=== PATIENT | female | born 1985 | race Caucasian/White ===

== ENCOUNTER 2016-08-07 11:35 | Inpatient (IN) | payer OTHER ==
[2016-08-07] MEDS ORDERED: Ampicillin 2 GM in Sodium Chloride 0.9% 100 ML IV ONE (13:19)
[2016-08-07] MEDS ORDERED: Sodium Chloride 0.9% 10 ML Syringe FLUSH PRN (13:21)
[2016-08-07] MEDS ORDERED: Sodium Chloride 0.9% 250 ML IV SCH (14:15)
[2016-08-07] MEDS: Ampicillin 1 GM in Sodium Chloride 0.9% 50 ML IV SCH (17:28)
[2016-08-07] MEDS ORDERED: Lidocaine 1% 20 ML MDV INJECT ONE (21:05)
[2016-08-07] MEDS ORDERED: Oxytocin 10 Units/1 ML SDV IM ONE (21:17)
[2016-08-07] MEDS: Ibuprofen 600 MG Tab PO PRN (21:51)
[2016-08-08] MEDS: Ampicillin 1 GM in Sodium Chloride 0.9% 50 ML IV SCH (05:42)
[2016-08-08] MEDS: Ibuprofen 600 MG Tab PO PRN ×2 (08:01→15:07)
[2016-08-09] MEDS: Ibuprofen 600 MG Tab PO PRN (02:53)
--- NOTE | 2016-08-09 07:45 | DEL ---
DATE OF DELIVERY: 08/07/2016 LABOR AND DELIVERY NOTE: Evelia Strong is a 31-year-old, 4, para 3-0-0-3, , female, resident of [facility], who was admitted to [facility] shortly after the noon hour. She had spontaneous rupture of membranes. Clear fluid. No complicating issues. Minimal contractions at the onset. She was up, ambulatory, and doing well. Requested for visit with ruptured membranes early. Group B rectovaginal culture was negative. In light of spontaneous rupture of membranes without presence of onset of labor, antibiotic prophylaxis appropriately indicated. Started on ampicillin per protocol 2 g IV, 1 g q.4 hours through duration of labor. Labor was predictable, but well tolerated. Dilatation was about 1 cm every 2 hours. She ambulated, was up and in the tub, did well. Monitoring pattern was satisfactory. She got to 10 cm. Discomfort became increasingly problematic, and labor was a bit more reluctant. She went to an anterior rim. With one good maternal effort, anterior rim was pushed over the baby's head. Over the course of about 15 minutes of second stage of labor, descent was appropriate in DEONDRE presentation. When at the perineum, was infiltrated with lidocaine, a midline episiotomy was performed, and the child was delivered in DEONDRE presentation. Both nares and oropharynx were suctioned. Nuchal cord was reduced, delivered without complication. The child was resuctioned, warmed, placed on mom's tummy. Let the cord be uncut, the child was well stimulated and comfortable for about 2 minutes, in absence of pulsation of the cord. Cord was doubly clamped and dad cut the cord in attendance. There was spontaneous placental separation, three cord vessels intact. Uterine tone was maintained by massage and intramuscular Pitocin 10 units. Perineum was inspected and free of extension. It was re-infiltrated with lidocaine and repaired in complex fashion with 2-0 chromic suture. Surgical results were excellent. Blood loss negligible, 100 mL. ASSESSMENT: 1. Term IURP. 2. Antibiotic prophylaxis, spontaneous rupture of membranes without labor. 3. A 7 pounds 4 ounce male , scores 9 and 9. 4. Midline episiotomy without extension, repaired. 5. Nursing, nutrition. PLAN: Routine course. No complicating issues, expected all should do well. /[id number] DEXTER/CONOR
--- NOTE | 2016-08-09 07:50 | PN ---
DATE SEEN: 08/08/2016 SUBJECTIVE: Evelia Strong is a 31-year-old 4, para 4 female, one day , up, ambulating, and doing well. Diarrhea, which was problematic during her labor, seems to have resolved. Minimal perineal discomfort. Minimal rectal/anal discomfort. Flow is minimal. OBJECTIVE: On exam, uterus is U-3, tone satisfactory, perineum intact. ASSESSMENT: day #1, no complicating issues. PLAN: Hemoglobin 12.7, informed. Plan discharge tomorrow. /[id number] /CONOR
[2016-08-09 10:44] VITALS: BP 105/61
--- NOTE | 2016-08-09 22:50 | DISCH ---
DISCHARGE DATE: 08/09/2016 HOSPITAL COURSE: Evelia Strong is a 31-year-old 4, para 4, female of 2 days . Up, ambulating, and doing well. Lochia and flow are moderating. Minimal perineal discomfort. Voiding without difficulty. Stools have subsided. Nursing is going comfortably. On exam; vital signs are stable. 36.6, 69, 100/66, 18, and O2 saturation 97%. Exam; U-three tone satisfactory, perineum intact. ASSESSMENT: day 2. PLAN: Discharge home with lengthy instructions, vitamin, ibuprofen, and Tylenol per protocol for pain, limit lifting activity, nurse on demand, intimacy as comfortable, 6 week followup. /[id number] DEXTER/CONOR
== END 2016-08-09 12:04 | disposition home or self-care (01) | DRG 775 ==
LOC: FB.OB 12:41
PROVIDERS: ADMIT Family Medicine; ATTEND Family Medicine
PROC: 10E0XZZ Delivery of Products of Conception, External Approach (ICD-10-PCS; principal; 2016-08-08)
PROC: 0W8NXZZ Division of Female Perineum, External Approach (ICD-10-PCS; 2016-08-08)
DX: O69.81X0 Labor and delivery complicated by cord around neck, without compression, not applicable or unspecified (principal); Z3A.00 Weeks of gestation of pregnancy not specified; Z37.0 Single live birth
CPT/HCPCS: 36415; 85014; 85018; A4217; A9270-GY; J0290; J2590; J7030; J7050

== ENCOUNTER → 2019-04-17 | Outpatient (CLI) | payer OTHER ==
--- NOTE | 2019-04-20 10:46 | US ---
INDICATION: 20 week gestation. OB ULTRASOUND, SECOND OR THIRD TRIMESTER: Multiple ultrasonic images were obtained 04/17/19 - no comparisons. A single intrauterine gestation is noted with change in position during the examination, mostly longitudinal breech. A normal amount of amniotic fluid was seen. The cervix measured 6.2 cm and appeared unremarkable. No adnexal mass lesion or free fluid collection was seen. Maternal ovaries were not demonstrated - not demonstrable. Grossly normal parameters included a regular heart rate of 152 BPM, unremarkable LVOT, RVOT, and 4-chamber heart, 3-vessel cord, cisterna magna, cerebellum, cavum septum pellucidum, spine, stomach, abdominal cord insertion, urinary bladder, kidneys, nose, lips, an extremities. Gestational age measurements were fairly closely grouped: BPD - 26 weeks, 6 days, HC - 26 weeks, 4 days, AC - 26 weeks, 2 days, FL - 25 weeks, 3 days, and averaged 26 weeks, 2 days, which is 1 week ahead of the LMP GA of 25 weeks, 2 days. BRANDON by ultrasound is 07/22/19, compared with the LMP BRANDON of 07/29/19. Gestational age measurements were within normal range or close to normal range with femur lengths, biparietal diameter slightly low at 69%, (normal range 71-87 %). Femur length is slightly low. This should be correlated clinically. Estimated weight was 881 grams (1 pound 15 ounces), 72nd percentile. IMPRESSION: Except for relatively short femurs of questionable significance at this point, normal appearing IUP of 26 weeks, 2 days, 1 week ahead of the LMP GA. BRANDON by ultrasound is 07/22/19. Estimated weight was 1 pound 15 ounces (81 grams), 72nd percentile. MTDD
== END ==
LOC: FB.DI 12:48
PROVIDERS: ATTEND Family Medicine
DX: Z34.92 Encounter for supervision of normal pregnancy, unspecified, second trimester (principal); Z3A.26 26 weeks gestation of pregnancy
CPT/HCPCS: 76805

== ENCOUNTER 2019-07-25 04:05 | Inpatient (IN) | payer OTHER ==
[2019-07-25] MEDS ORDERED: Ampicillin 2 GM in Sodium Chloride 0.9% 100 ML IV STA (05:06)
[2019-07-25] MEDS ORDERED: Sodium Chloride 0.9% 10 ML Syringe FLUSH PRN (05:39)
--- NOTE | 2019-07-25 06:54 | PCM.SN ---
- Free Text/Narrative Note: ANESTHESIA OB SERVICE Date: 07/25/2019 Time:05 to 622 Dx: G6,P4,Ab1 40 weeks OB in active labor Rx: Labor Pain Control Procedure: Intrathecal Narcotics I was called by the OB RN for an Intrathecal Narcotic per the request of the patient. She is in active labor and dilated to 8+ cm. I discussed the risks and benefits with her about the intrathecal including PDPH, possible increased pruritus / nausea and failure. All of her questions were answered completely and a consent was obtained. Monitors: NIBP, Heart rate, SpO2 and FHR. Please see the nursing notes for vital signs. IV fluids are infusing and has had approximately 500 ml's. She is in a sitting position. Using aseptic technique, her lumbar area was prepped with Betadine X 3 swabs and allowed to dry. A plastic, sterile drape was applied and her L-3-4 interspace was infiltrated with 4.5 ml's of 1% Lidocaine plain using a 25 Ga. needle. I inserted a 20 Ga. Spinal Introducer Needle followed by a 25 Ga. X 3.5 In. Pencan Spinal Needle until a MURTAZA with clear CSF occurred X 1 attempt. I had good CSF flow and injected approximately 2 mg's of .75% Spinal Marcaine plain, 25 mcg's of Fentanyl and .3 mg's of Astromorph easily. She tolerated this well but complains of very minor pruritus. heart rate remains good. Thank you for using this service. Dorian Farris CRNA, A
[2019-07-25] MEDS ORDERED: Famotidine/Normal Saline 20 MG in Premix Bag 1 BAG IV PRN (06:55)
[2019-07-25] MEDS ORDERED: diphenhydrAMINE 50 MG/ML SDV IV PRN (06:55)
[2019-07-25] MEDS ORDERED: Naltrexone 50 MG Tab PO PRN (06:55)
[2019-07-25] MEDS ORDERED: Naloxone 0.4 MG/ML SDV IVPUSH PRN (06:55)
[2019-07-25] MEDS ORDERED: Promethazine 6.25 MG in Sodium Chloride 0.9% 50 ML IV PRN (06:55)
[2019-07-25] MEDS ORDERED: Ondansetron 4 MG/2 ML SDV IVPUSH PRN (06:55)
[2019-07-25] MEDS ORDERED: Nalbuphine 10 MG/1 ML Vial IVPUSH PRN (06:55)
[2019-07-25] MEDS ORDERED: ePHEDrine 50 MG/ML SDV IVPUSH PRN (06:55)
[2019-07-25] MEDS ORDERED: Lactated Ringers 500 ML IV SCH (07:00)
[2019-07-25] MEDS ORDERED: Oxytocin 10 Units/1 ML SDV IM ONE (08:10)
[2019-07-25] MEDS: Ibuprofen 800 MG Tab PO PRN ×2 (09:29→19:38)
--- NOTE | 2019-07-25 19:07 | DEL ---
DATE OF DELIVERY: 07/25/2019 PREOPERATIVE DIAGNOSIS: Term at 39 weeks and 2 days. PROCEDURES PERFORMED: 1. Spontaneous vaginal delivery. 2. Second-degree vaginal tear repair. HISTORY OF PRESENT ILLNESS: This is a 33-year-old female, G5, P4, who presented with uterine contractions and found to be about 8 cm in dilatation with intact membranes. She is group B positive. Initially thought to be complete. I attempted rupture of membranes and found she was 8 cm. I did rupture them anyway. She got 1 dose of ampicillin and asked for epidural anesthesia and she got an intrathecal. PROCEDURE DETAILS: The patient was admitted. She had delivered this morning at about 8 live male infant, 9 and 9 score, on DEONDRE position. After control, delivered the head, no nuchal cord was noted. The baby's shoulder was delivered. The cord was cut and clamped after the baby had been placed in maternal abdomen. There was a delay about 30 seconds. The infant was taken to the waiting nurse. Weight is pending at the time of this dictation. Spontaneous delivery of an intact placenta was made, which was three-vessel within 15 minutes. On examination, there was a huge laceration in the periurethral area that was bleeding profusely. This was controlled by two [id number] stitches of 4-0 Vicryl. There was also a second-degree tear in the perineum midline, which was repaired with 4-0 Vicryl with no complications. Estimated blood loss about 500 mL. Mother and infant stable in the recovery room at this time. The patient did get 10 international units of Pitocin IM. /[id number] ASHLYN/MAURYL
[2019-07-25] MEDS ORDERED: Lactated Ringers 1,000 ML IV SCH (19:30)
--- NOTE | 2019-07-26 08:55 | PCM.PNPP ---
- General Info Date of Service: 07/26/19 Subjective Update: Doing well. Mild pain and bleeding Functional Status: Reports: Pain Controlled - Review of Systems General: Reports: No Symptoms HEENT: Reports: No Symptoms Pulmonary: Reports: No Symptoms Cardiovascular: Reports: No Symptoms Gastrointestinal: Reports: No Symptoms - General Info Date of Service: 07/26/19 - Patient Data Vital Signs - Most Recent: Last Vital Signs Temp 98.2 F 07/26/19 00:00 Pulse 87 07/26/19 00:00 Resp 18 07/26/19 00:00 BP 110/52 L 07/26/19 00:00 Pulse Ox 100 07/26/19 00:00 Weight - Most Recent: 72.121 kg Lab Results - Last 24 Hours: Laboratory Results - last 24 hr 07/26/19 Range/Units 06:20 WBC 8.1 (4.5-12.0) X10-3/uL RBC 3.24 (3.23-5.20) x10(6)uL Hgb 9.8 L (11.5-15.5) g/dL Hct 30.3 (30.0-51.3) % MCV 93.6 (80-96) fL MCH 30.2 (27.7-33.6) pg MCHC 32.3 (32.2-35.4) g/dL RDW 13.5 (11.5-15.5) % Plt Count 125 (125-369) X10(3)uL MPV 8.7 (7.4-10.4) fL Add Manual Diff Yes Neutrophils % (Manual) 75 (46-82) % Lymphocytes % (Manual) 12 L (13-37) % Monocytes % (Manual) 8 (4-12) % Eosinophils % (Manual) 5 (0-5) % Med Orders - Current: Current Medications Diphenhydramine HCl (Benadryl) 25 mg IV ASDIRECTED PRN PRN Reason: PRURITUS Last Admin: 07/25/19 09:29 Dose: 25 mg Ephedrine Sulfate (Ephedrine Sulfate) 0 mg IVPUSH ASDIRECTED PRN PRN Reason: Hypotension Famotidine 20 mg/ Premix 50 mls @ 100 mls/hr IV ONETIME PRN PRN Reason: PRURITIS Lactated Ringer's (Ringers, Lactated) 500 mls @ 999 mls/hr IV BOLUS GENE Promethazine HCl 6.25 mg/ (Sodium Chloride) 50.25 mls @ 200 mls/hr IV Q4H PRN PRN Reason: Nausea/Vomiting Ibuprofen (Motrin) 800 mg PO Q4H PRN PRN Reason: Pain Last Admin: 07/25/19 19:38 Dose: 800 mg Nalbuphine HCl (Nubain) 5 mg IVPUSH Q1H PRN PRN Reason: PRURITUS Naloxone HCl (Narcan) 0.1 mg IVPUSH ASDIRECTED PRN PRN Reason: Respiratory Depression Naltrexone HCl (Naltrexone) 25 mg PO ASDIRECTED PRN PRN Reason: REVERSAL Last Admin: 07/25/19 09:29 Dose: 25 mg Ondansetron HCl (Zofran) 4 mg IVPUSH Q4H PRN PRN Reason: Nausea/Vomiting Last Admin: 07/25/19 09:29 Dose: 4 mg Sodium Chloride (Saline Flush) 10 ml FLUSH ASDIRECTED PRN PRN Reason: Keep Vein Open Discontinued Medications Ampicillin Sodium 2 gm/ Sodium (Chloride) 100 mls @ 200 mls/hr IV ONETIME STA Stop: 07/25/19 05:35 Last Admin: 07/25/19 05:36 Dose: 200 mls/hr Lactated Ringer's (Ringers, Lactated) 1,000 mls @ 999 mls/hr IV ASDIRECTED GENE Stop: 07/25/19 20:31 Last Admin: 07/25/19 07:20 Dose: 999 mls/hr Oxytocin (Pitocin) 10 unit IM ONETIME ONE Stop: 07/25/19 08:11 Last Admin: 07/25/19 08:10 Dose: 10 unit - Infant Interaction Infant Disposition, : in Room with Family Infant Feeding: Breastfed Infant; Nursed Well Support Person: - Recovery Exam Fundal Tone: Firm Fundal Level: At Umbilicus Fundal Placement: Midline Lochia Amount: Moderate Lochia Color: Rubra/Red Perineum Description: Redness, Edematous, Hematoma Episiotomy/Laceration: Approximated Bladder Status: Voiding Urinary Elimination: Straight Catheterization - Exam General: Alert, Oriented HEENT: Pupils Equal Neck: Supple Lungs: Clear to Auscultation - Problem List & Annotations (1) exam SNOMED Code(s): 506933366, 767205642 Code(s): Z39.2 - ENCOUNTER FOR ROUTINE FOLLOW-UP Status: Acute Current Visit: Yes - Problem List Review Problem List Initiated/Reviewed/Updated: Yes - My Orders Last 24 Hours: My Active Orders 07/25/19 08:30 Insert Urinary Catheter [OM.PC] Q24H 07/25/19 09:07 Vital Signs [RC] 08,16,00 Ibuprofen [Motrin] 800 mg PO Q4H PRN Assess Uterine Involution [WOMSER] Per Unit Routine Perineal Care [OM.PC] Per Unit Routine Sitz Bath [OM.PC] Per Unit Routine - Plan Plan:: Routine care.DC home today
[2019-07-26] MEDS: Ibuprofen 800 MG Tab PO PRN ×2 (10:17→17:04)
[2019-07-26 12:22] VITALS: BP 104/56; PULSE 79
== END 2019-07-26 19:22 | disposition home or self-care (01) | DRG 807 ==
LOC: FB.OBCHECK 04:05 → FB.OB 04:11 → FB.OBCHECK 04:42 → FB.OB 04:43
PROVIDERS: ADMIT Family Medicine; ATTEND Family Medicine
PROC: 10E0XZZ Delivery of Products of Conception, External Approach (ICD-10-PCS; principal; 2019-07-25)
PROC: 0KQM0ZZ Repair Perineum Muscle, Open Approach (ICD-10-PCS; 2019-07-25)
PROC: 3E0R3BZ Introduction of Anesthetic Agent into Spinal Canal, Percutaneous Approach (ICD-10-PCS; 2019-07-25)
DX: O99.824 Streptococcus B carrier state complicating childbirth (principal); Z37.0 Single live birth; Z3A.39 39 weeks gestation of pregnancy; O70.1 Second degree perineal laceration during delivery
CPT/HCPCS: 36415; 51701; 59409; 85025; 99211; A9270-GY; J0290; J1200; J2405; J2590; J7050; J7120